=== PATIENT | male | born 1965 | race Caucasian/White ===

== ENCOUNTER 2017-09-10 03:55 | Emergency (ER) | payer OTHER ==
[~2017-09-10] VITALS: Ht 190.5 cm; Wt 131.5 kg
[~2017-09-10 03:55] MED LIST: COUMADIN 5 MG TA5 M1 PO; IBUPROFEN 200200 M1 PO; LEVAQUIN 500 M500 M2 PO; VENTOLIN HFA 1818 GM INH
[2017-09-10 04:49] LABS: ABSOLUTE NEUTROPHILS 5.1 thou/uL (1.4-8.2); BASOPHILS 0.7 % (0.0-2.0); EOSINOPHILS 2.1 % (0.0-3.0); HEMATOCRIT 40.1 % (42.0-52.0); HEMOGLOBIN 13.4 gm/dL (14.0-18.0); MCH 30.7 pg (26.0-34.0); MCHC 33.4 g/dL (28.0-37.0); MCV 91.8 fL (80.0-100.0); MONOCYTES 10.8 % (1.0-8.0); PLATELET COUNT 325 thou/uL (150-400); POLYS 65.4 % (36.0-66.0); RBC 4.37 mil/uL (4.50-6.00); RDW 13.9 % (10.5-14.5); WBC 7.9 thou/uL (4.0-11.0)
[2017-09-10 04:50] LABS: MANUAL DIFF NO
[2017-09-10 05:03] LABS: APTT 47.1 Seconds (24.5-32.8); CALCIUM 9.2 mg/dL (8.5-10.1); CREATININE 1.4 mg/dL (0.7-1.3); INR 3.1; POTASSIUM 4.1 mmol/L (3.5-5.1); PROTIME 30.8 Seconds (9.3-11.4)
== END 2017-09-10 06:30 | disposition home or self-care (01) ==
LOC: ER 03:55
PROVIDERS: Emergency Medicine
DX: J90 Pleural effusion, not elsewhere classified (principal); R20.2 Paresthesia of skin; J18.9 Pneumonia, unspecified organism; I26.99 Other pulmonary embolism without acute cor pulmonale

== ENCOUNTER → 2017-11-11 | Outpatient (CLI) | payer OTHER | LOC: RAD 11:54 | DX: I27.82 Chronic pulmonary embolism (principal); J18.9 Pneumonia, unspecified organism; J98.11 Atelectasis; R91.8 Other nonspecific abnormal finding of lung field ==

== ENCOUNTER → 2017-12-16 | Outpatient (CLI) | payer OTHER, SELFPAY | LOC: RAD 08:55 | DX: R06.02 Shortness of breath (principal); R05 Cough ==

== ENCOUNTER → 2018-12-02 | Outpatient (CLI) | payer OTHER | LOC: CAT 09:51 | DX: Z13.6 Encounter for screening for cardiovascular disorders (principal); E78.00 Pure hypercholesterolemia, unspecified; Z82.49 Family history of ischemic heart disease and other diseases of the circulatory system ==